=== PATIENT | female | born 1950 | race Caucasian/White ===

== ENCOUNTER 2021-10-07 09:35 | Outpatient (REF) | payer MEDICARE, OTHER, SELFPAY | END 2021-10-07 09:36 | disposition home or self-care (01) | LOC: HO.LAB 09:35 | PROVIDERS: Visit Provider Internal Medicine | DX: Z13.89 Encounter for screening for other disorder (principal) ==

== ENCOUNTER 2021-10-07 13:45 | Outpatient (REF) | payer MEDICARE, OTHER, SELFPAY | END 2021-10-07 13:46 | disposition home or self-care (01) | LOC: HO.LNP 13:45 | PROVIDERS: Visit Provider Internal Medicine | DX: R30.0 Dysuria (principal) | CPT/HCPCS: 87086; 87088; 87147; 87186 ==

== ENCOUNTER 2022-08-28 12:17 | Outpatient (REF) | payer MEDICARE, OTHER, SELFPAY ==
--- NOTE | ~2022-08-28 | XR_ITS ---
EXAMINATION: XR FINGER, RIGHT CLINICAL INFORMATION: Crush injury COMPARISON: None TECHNIQUE: Three views of the right long finger. FINDINGS: There are tiny ossific fragments along the proximal aspects of the third distal phalangeal tuft medially and laterally reflective of an avulsion fractures with minimal displacement. No dislocation. Soft tissue swelling about the third distal phalanx. XR/XR finger RT min 2V IMPRESSION: There are tiny avulsion fractures involving the medial and lateral aspects of the third distal phalangeal tuft.
== END 2022-08-28 12:18 | disposition home or self-care (01) ==
LOC: HO.HMGCX 12:17
PROVIDERS: Visit Provider Physician Assistant
DX: S67.192D Crushing injury of right middle finger, subsequent encounter (principal)
CPT/HCPCS: 73140

== ENCOUNTER 2023-06-16 09:20 | Outpatient (AMB) | payer MEDICARE, OTHER, SELFPAY ==
--- NOTE | 2023-06-16 10:27 | MHC.OFFWIV ---
Intake Vital Signs 06/16/23 10:41 Weight 141 lb BP 116/70 Blood Pressure Location Lt brachial Position Sitting Temp 98 F Temp Source Oral Pulse Oximetry (%) 100 Oxygen Delivery Method Room Air Intake Visit Reasons: EST/uti symptoms (lobby) Intake Note: Pt c/o of discharge every other day x 1 week. Went to a walk-in clinic and took an antibiotic. States something doesn't' feel right down there Patient Tobacco Use Status: Never used Tobacco Allergies amoxicillin [From Augmentin] Allergy (Mild, Verified 06/16/23 10:40) Diarrhea clavulanic acid [From Augmentin] Allergy (Mild, Verified 06/16/23 10:40) Diarrhea HPI EST/uti symptoms (lobby) HPI Details Patient is a 72-year-old female comes to the walk-in clinic complaining of intermittent discharge from the vagina every few days for the last few weeks. She states she has some associated aching discomfort to her lower abdomen and lower back, but no definitive pain, and states that it just does not feel right . She denies vaginal pain or itching, or an odor to the discharge, and denies urinary frequency, dysuria or difficulty with urination, however she states that she went to an urgent care recently when symptoms began, and was prescribed an antibiotic for possible urinary tract infection. She states that this did not improve her symptoms. She denies nausea vomiting or diarrhea, weakness or dizziness, fever or chills, anorexia, weight changes, significant back pain, vaginal bleeding, or other significant associated symptoms. She states that she is not sexually active and sexually transmitted diseases are not a concern. She is postmenopausal, and states that she has not had any other associated symptoms. [facility] Social History Patient Tobacco Use Status: Never used Tobacco Review of Systems Const All systems reviewed & are unremarkable except as noted in HPI and below Physical Exam Vital Signs: Last Vital Signs Temp 98 F 06/16/23 10:41 BP 116/70 06/16/23 10:41 Pulse Ox 100 06/16/23 10:41 Oxygen Delivery Method Room Air 06/16/23 10:41 Const General: cooperative, healthy appearing, comfortable, no acute distress, alert, awake, Physically active and well groomed; No anxious, diaphoretic, ill appearing, intoxicated appearing, poor hygiene or tired appearing Nutritional Appearance: average body habitus Limitations: no limitations Resp Effort & Inspection: normal respiratory effort Cardio Palpation: normal PMI Rate: regular rate Rhythm: regular rhythm Heart sounds: S1 normal heart sound present and S2 normal heart sound present Other: Mildly tender diffusely to the bilateral lower quadrants, no localized area of tenderness General: Yes no CVA tenderness External Female Exam: normal external appearance, Abnormal introitus, No erythema, No externally tender, No lesion, No urethral discharge and No tender Speculum Exam - Vagina: Abnormal introitus Back/Spine/Pelvis Back: no CVA tenderness Psych Appearance: grossly normal Mental Status: mental status grossly normal Speech and movement: Normal speech and movement present Affect: normal affect Attitude: cooperative Thought process: Normal thought process present Insight: Good insight present (Psych) Judgement: Good judgement present (Psych) Results AMB Urinalysis, Automated UA Leukoctes Ronald/uL Last Edit by Adama Mckay CMA on 06/16/23 10:25 UA Nitrite Negative Last Edit by Adama Mckay CMA on 06/16/23 10:25 UA Urobilinogen 0.2 mg/dL Last Edit by Adama Mckay CMA on 06/16/23 10:25 UA Protein mg/dL Last Edit by Adama Mckay CMA on 06/16/23 10:25 UA pH 5.5 Last Edit by Adama Mckay CMA on 06/16/23 10:25 UA Blood 10 Adonis/uL Last Edit by Adama Mckay CMA on 06/16/23 10:25 UA Specific Brandon 1.015 Last Edit by Adama Mckay CMA on 06/16/23 10:25 UA Ketone Negative Last Edit by Adama Mckay CMA on 06/16/23 10:25 UA Bilirubin mg/dL Last Edit by Adama Mckay CMA on 06/16/23 10:25 UA Glucose mg/dL Last Edit by Adama Mckay CMA on 06/16/23 10:25 Results Reviewed Results Reviewed: Laboratory Last Values Urine pH (Auto) 5.5 06/16/23 10:23 Specific Brandon (Auto) 1.015 06/16/23 10:23 Urine Ketones (Auto) Negative 06/16/23 10:23 Urine Blood (Auto) 10 Adonis/uL 06/16/23 10:23 Urine Nitrite (Auto) Negative 06/16/23 10:23 Urine Urobilinogen (Auto) 0.2 mg/dL 06/16/23 10:23 Assessment & Plan Assessment & Plan (1) Vaginal bacteriosis: Code(s): N76.0 - Acute vaginitis; B96.89 - Other specified bacterial agents as the cause of diseases classified elsewhere Plan: Patient is a 72-year-old female who is postmenopausal and does not sexually active. She states her symptoms have been mostly a clear to yellowish vaginal discharge that is new for her, but that does not cause pain or itching. She denies any change in personal products or and hygiene habits. It is possible that she has bacterial vaginitis, or an early Kristine infection. We discussed doing a swab to rule out these causes as well as Trichomonas although she is not sexually active, and this is pending. She desires starting treatment for possible BV, as the holidays are approaching. It is also possible that she has mild pelvic organ prolapse that is now causing her some symptoms. I advised that she follow-up with her PCP or ob gyn physician assistant for further evaluation if symptoms persist Orders: Orders AMB Urinalysis Automated 06/16/23 N39.0 - Urinary tract infection, site not specified Bacterial Vaginosis Panel 06/16/23 B96.89 - Other specified bacterial agents as the cause of diseases classified elsewhere, N76.0 - Acute vaginitis Medications: New metronidazole 1% (Metrogel) 1 appl topical BEDTIME 60 grams 0RF Coding Level of Care Code Est Pt Level 4 (90730) Diagnoses Vaginal bacteriosis N76.0; B96.89
[2023-06-16 10:41] VITALS: BP 116/70; TEMP 36.6; O2SAT 100
== END 2023-06-16 11:24 | disposition home or self-care (01) ==
PROVIDERS: PCP Internal Medicine; Visit Provider Physician Assistant Medical
DX: N39.0 Urinary tract infection, site not specified (principal); N89.8 Other specified noninflammatory disorders of vagina
CPT/HCPCS: 81003; 99214

== ENCOUNTER 2023-06-16 12:48 | Outpatient (REF) | payer MEDICARE, OTHER, SELFPAY ==
[2023-06-18 09:25] LABS: BV Int Neg Control Negative (Negative); BV Int Pos Control Positive (Positive)
== END 2023-06-16 12:49 | disposition home or self-care (01) ==
LOC: HO.LAB 12:48
PROVIDERS: Visit Provider Physician Assistant Medical
DX: N76.0 Acute vaginitis (principal); B96.89 Other specified bacterial agents as the cause of diseases classified elsewhere
CPT/HCPCS: 87480; 87510; 87660